=== PATIENT | male | born 1930 | race African-American/Black ===

== ENCOUNTER 2016-10-16 12:55 | Inpatient (IN) | payer MEDICARE ==
[~2016-10-16] VITALS: Ht 180.3 cm; Wt 78.6 kg
[~2016-10-16 12:55] MED LIST: ASPI-1159 PO; ATOR10TA PO; CLOP75TA16 PO; COR6 PO; DONE10TA11 PO; FURO80TA3 PO; HEPARIN SODIUM 1,000 UNIT/1ML VIAL IV ONE; LOV60 SQ; MEMA5TAB7 PO; MV,M1TAB2 PO; NICARDIPINE 100MCG/ML 10ML VIAL (CATH LAB) IV ONE; NITR12SP4 TL; NITROGLYCERIN 50MCG/ML 10ML VIAL (CATH LAB) IV ONE; POTA20TA12 PO; VIAG100 PO; VITA1CAP PO; WARF3TAB28 PO
[2016-10-16] MEDS ORDERED: COR3 PO ×2 (13:37→14:26)
[2016-10-16] MEDS ORDERED: ATOR20TA PO (13:37)
[2016-10-16 14:10] LABS: INR 1.2; PROTHROMBIN TIME 12.6 sec (9.4-11.6)
[2016-10-16] MEDS ORDERED: LIDOCAINE HCL 1% 20ML VIAL (Pyxis) INJ ONE (14:39)
[2016-10-16] MEDS ORDERED: IODIXANOL 320MG/ML 100 ML BOTTLE IV ONE (14:39)
[2016-10-16] MEDS ORDERED: FENTANYL CITRATE/PF 50MCG/ML 2ML VIAL ONE (14:42)
[2016-10-16] MEDS ORDERED: MIDAZOLAM HCL 2 MG/2 ML VIAL ONE (14:42)
[2016-10-16] MEDS ORDERED: IODIXANOL 320MG/ML 200ML BOTTLE ONE (14:45)
[2016-10-16] MEDS ORDERED: IOVERSOL 240MG/ML 100ML BOTTLE IV ONE (15:58)
[2016-10-16] MEDS ORDERED: ASPIRIN 325MG TABLET ONE (16:20)
[2016-10-16] MEDS ORDERED: CLOPIDOGREL 75MG TABLET ONE (16:21)
[2016-10-16] MEDS: CARVEDILOL 3.125 MG TABLET PO SCH (18:16)
[2016-10-16] MEDS ORDERED: ATORVASTATIN CALCIUM 20MG TABLET PO SCH (21:00)
[2016-10-17 06:44] LABS: BASOPHILS % 0.7 % (0.0-2.0); EOSINOPHILS % 1.5 % (0.0-5.0); HEMATOCRIT. 31.1 % (42.0-52.0); HEMOGLOBIN. 10.4 g/dL (14.0-18.0); MEAN CORPUSCULAR HEMOGLOBIN 30.9 pg (28.0-32.0); MEAN CORPUSCULAR VOLUME 92.4 fL (80.0-94.0); MEAN PLATELET VOLUME 8.5 fl (7.4-10.4); MONOCYTES % 9.3 % (2.0-8.0); NEUTROPHILS % 73.5 % (40.0-76.0); PLATELET 142 x1000/uL (130-400); RED BLOOD CELL COUNT 3.37 mill/uL (4.7-6.1); RED CELL DISTRIBUTION WIDTH 14.5 % (11.6-14.6)
[2016-10-17] MEDS: CARVEDILOL 3.125 MG TABLET PO SCH (08:31)
[2016-10-17] MEDS ORDERED: SILDENAFIL CITRATE 100 MG PO SCH (09:00)
[2016-10-17] MEDS ORDERED: CLOPIDOGREL 75MG TABLET PO SCH (09:00)
[2016-10-17] MEDS ORDERED: MEMANTINE HCL 5MG TABLET PO SCH (09:00)
[2016-10-17] MEDS ORDERED: FUROSEMIDE 80MG TABLET PO SCH (09:00)
[2016-10-17] MEDS ORDERED: POTASSIUM CHLORIDE 20MEQ TABLET SR PO SCH (09:00)
[2016-10-17] MEDS ORDERED: ASPIRIN 81MG EC TABLET PO SCH (09:00)
[2016-10-17] MEDS ORDERED: ENOXAPARIN 40MG/0.4ML SYR SUBCUT SCH (09:45)
[2016-10-17] MEDS ORDERED: ENOXAPARIN 60MG/0.6ML SYR SUBCUT NR (10:17)
[2016-10-17 11:45] VITALS: BP 112/68
== END 2016-10-17 11:40 | disposition home health service (06) | DRG 247 ==
LOC: CCL 12:55 → 3WST 12:56
PROVIDERS: ADMIT Specialist; ATTEND Specialist
PROC: 027034Z Dilation of Coronary Artery, One Artery with Drug-eluting Intraluminal Device, Percutaneous Approach (ICD-10-PCS; principal; 2016-10-16)
PROC: B2111ZZ Fluoroscopy of Multiple Coronary Arteries using Low Osmolar Contrast (ICD-10-PCS; 2016-10-16)
PROC: 4A033BC Measurement of Arterial Pressure, Coronary, Percutaneous Approach (ICD-10-PCS; 2016-10-16)
PROC: 4A023N7 Measurement of Cardiac Sampling and Pressure, Left Heart, Percutaneous Approach (ICD-10-PCS; 2016-10-16)
PROC: B2121ZZ Fluoroscopy of Single Coronary Artery Bypass Graft using Low Osmolar Contrast (ICD-10-PCS; 2016-10-16)
DX: T82.855A Stenosis of coronary artery stent, initial encounter (principal); I27.2 Other secondary pulmonary hypertension; I50.22 Chronic systolic (congestive) heart failure; I13.0 Hypertensive heart and chronic kidney disease with heart failure and stage 1 through stage 4 chronic kidney disease, or unspecified chronic kidney disease; I25.118 Atherosclerotic heart disease of native coronary artery with other forms of angina pectoris; G30.9 Alzheimer's disease, unspecified; F02.80 Dementia in other diseases classified elsewhere, unspecified severity, without behavioral disturbance, psychotic disturbance, mood disturbance, and anxiety; E78.5 Hyperlipidemia, unspecified; N18.3 Chronic kidney disease, stage 3 (moderate); I25.5 Ischemic cardiomyopathy; I48.0 Paroxysmal atrial fibrillation; Y83.8 Other surgical procedures as the cause of abnormal reaction of the patient, or of later complication, without mention of misadventure at the time of the procedure; Y83.1 Surgical operation with implant of artificial internal device as the cause of abnormal reaction of the patient, or of later complication, without mention of misadventure at the time of the procedure; Z79.01 Long term (current) use of anticoagulants; Z86.73 Personal history of transient ischemic attack (TIA), and cerebral infarction without residual deficits; Z88.1 Allergy status to other antibiotic agents; I25.2 Old myocardial infarction; Z88.0 Allergy status to penicillin; Y92.89 Other specified places as the place of occurrence of the external cause
CPT/HCPCS: 36415; 80048; 85025; 85347; 85610; 92928; 93005; 93458; 93571; C1725; C1769; C1887; C1893; J1644; J1650; J2250; J3010; J3490; Q9967

== ENCOUNTER 2017-10-03 18:55 | Observation (INO) | payer MEDICARE, MEDICAID ==
[~2017-10-03] VITALS: Ht 177.8 cm; Wt 72.7 kg
[~2017-10-03 18:55] MED LIST changes: +ACET-2178 PO; -ATOR10TA PO; +ATOR20TA PO; +COR3 PO; -COR6 PO; -DONE10TA11 PO; -HEPARIN SODIUM 1,000 UNIT/1ML VIAL IV ONE; +LORA1TAB PO; -LOV60 SQ; -NICARDIPINE 100MCG/ML 10ML VIAL (CATH LAB) IV ONE; -NITROGLYCERIN 50MCG/ML 10ML VIAL (CATH LAB) IV ONE
[2017-10-03] MEDS ORDERED: IPRATROPIUM BROMIDE (0.02%) 0.5MG/2.5ML NEB HHN STA (19:41)
[2017-10-03] MEDS ORDERED: METHYLPREDNISOLONE SOD SUCC 125 MG/2 ML VIAL IV STA (19:41)
[2017-10-03] MEDS ORDERED: ALBUTEROL (0.083%) 2.5MG/3ML NEB HHN STA (19:41)
[2017-10-03 20:15] LABS: BASOPHILS % 0.5 % (0.0-2.0); EOSINOPHILS % 1.5 % (0.0-5.0); HEMATOCRIT. 34.5 % (42.0-52.0); HEMOGLOBIN. 11.1 g/dL (14.0-18.0); LYMPHOCYTES % 9.3 % (20.0-50.0); MEAN CORPUSCULAR HEMOGLOBIN 30.5 pg (28.0-32.0); MEAN CORPUSCULAR VOLUME 95.3 fL (80.0-94.0); MEAN PLATELET VOLUME 8.2 fl (7.4-10.4); MONOCYTES % 10.6 % (2.0-8.0); NEUTROPHILS % 78.1 % (40.0-76.0); PLATELET 204 x1000/uL (130-400); RED BLOOD CELL COUNT 3.62 mill/uL (4.7-6.1); RED CELL DISTRIBUTION WIDTH 17.2 % (11.6-14.6)
[2017-10-03 20:18] LABS: CHLORIDE 106 mEq/L (98-107)
[2017-10-03 20:19] LABS: INR 1.3; PROTHROMBIN TIME 13.3 sec (9.4-11.6)
[2017-10-03] MEDS ORDERED: FUROSEMIDE 40MG/4ML VIAL IV ONE (20:30)
[2017-10-03] MEDS ORDERED: ASPIRIN 81MG TABLET PO ONE (20:30)
[2017-10-03 22:30] VITALS: BP 136/74
[2017-10-03] MEDS ORDERED: MIDO2.5T GT (23:32)
[2017-10-03] MEDS ORDERED: POTA20TA82 GT (23:32)
[2017-10-03] MEDS ORDERED: DOCU100T GT (23:32)
[2017-10-03] MEDS ORDERED: MAGN200T5 GT (23:32)
[2017-10-03] MEDS ORDERED: FURO40TA5 GT (23:32)
[2017-10-03] MEDS ORDERED: MULT-379 GT (23:32)
[2017-10-03] MEDS ORDERED: MEMA10TA19 GT (23:32)
[2017-10-03] MEDS ORDERED: ESCI10TA GT (23:33)
[2017-10-03] MEDS ORDERED: LORA1TAB GT (23:33)
[2017-10-03] MEDS ORDERED: GUAI-735 GT (23:33)
[2017-10-03] MEDS ORDERED: HYDR-4001 GT (23:33)
[2017-10-03] MEDS ORDERED: COR3 GT (23:33)
[2017-10-03] MEDS ORDERED: LACT10SO7 GT (23:33)
[2017-10-03] MEDS ORDERED: GUAI10SY2 GT (23:33)
[2017-10-03] MEDS ORDERED: ONDA4TAB11 GT (23:33)
[2017-10-03] MEDS ORDERED: IPRA4AER INH (23:33)
[2017-10-03] MEDS ORDERED: ATOR20TA GT (23:33)
[2017-10-04] VITALS: BP 101/60
[2017-10-04] MEDS ORDERED: ACETAMINOPHEN 650MG/20.3ML UDC GT PRN
[2017-10-04] MEDS ORDERED: IPRATROPIUM/ALBUTEROL 0.5-3(2.5)MG/3ML NEB HHN PRN
[2017-10-04] MEDS ORDERED: ONDANSETRON HCL 4MG/2ML VIAL IV PRN
[2017-10-04] MEDS ORDERED: LORAZEPAM 2MG/ML CPJ IV PRN
[2017-10-04] MEDS ORDERED: ENALAPRIL 1.25MG/ML VIAL 1ML IV PRN
[2017-10-04 04:00] VITALS: BP 124/82
[2017-10-04 08:00] VITALS: BP 111/57
[2017-10-04] MEDS: ENOXAPARIN 40MG/0.4ML SYR SUBCUT SCH (09:34)
[2017-10-04] MEDS: FUROSEMIDE 40MG/4ML VIAL IVP SCH (09:34)
[2017-10-04] MEDS: ASPIRIN 81MG TABLET GT SCH (09:34)
[2017-10-04 10:23] LABS: HEMATOCRIT. 34.7 % (42.0-52.0); HEMOGLOBIN. 11.1 g/dL (14.0-18.0); MEAN CORPUSCULAR HEMOGLOBIN 30.7 pg (28.0-32.0); MEAN CORPUSCULAR VOLUME 95.6 fL (80.0-94.0); MEAN PLATELET VOLUME 8.5 fl (7.4-10.4); PLATELET 163 x1000/uL (130-400); RED BLOOD CELL COUNT 3.63 mill/uL (4.7-6.1); RED CELL DISTRIBUTION WIDTH 17.1 % (11.6-14.6)
[2017-10-04 10:38] LABS: CHLORIDE 107 mEq/L (98-107)
[2017-10-04 12:00] VITALS: BP 93/58
[2017-10-04 14:44] LABS: PLATELET ESTIMATE NORMAL
[2017-10-04 16:00] VITALS: BP 95/54
[2017-10-04 20:00] VITALS: BP 109/60
[2017-10-05] VITALS: BP_SYST 106; BP_SYST 108; BP_DIAS 59
[2017-10-05 04:00] VITALS: BP 108/59
[2017-10-05 08:00] VITALS: BP 106/68
[2017-10-05] MEDS: ASPIRIN 81MG TABLET GT SCH (09:30)
[2017-10-05] MEDS: FUROSEMIDE 40MG/4ML VIAL IVP SCH (09:30)
[2017-10-05] MEDS: ENOXAPARIN 40MG/0.4ML SYR SUBCUT SCH (09:31)
[2017-10-05 12:00] VITALS: BP 110/52
[2017-10-05 16:00] VITALS: BP 98/58
[2017-10-05 19:43] VITALS: BP 96/59
== END 2017-10-05 20:54 ==
LOC: ER 18:55 → 5WST 20:36 → INTOOBSV 20:36 → EDBEDREQTM 20:38 → EDBEDREQ 20:38 → ENRESERV 21:29
PROVIDERS: ADMIT Hospitalist; ATTEND Hospitalist
DX: I11.0 Hypertensive heart disease with heart failure (principal); I50.23 Acute on chronic systolic (congestive) heart failure; I48.91 Unspecified atrial fibrillation; E78.00 Pure hypercholesterolemia, unspecified; F02.80 Dementia in other diseases classified elsewhere, unspecified severity, without behavioral disturbance, psychotic disturbance, mood disturbance, and anxiety; G30.9 Alzheimer's disease, unspecified; I25.10 Atherosclerotic heart disease of native coronary artery without angina pectoris; Z86.73 Personal history of transient ischemic attack (TIA), and cerebral infarction without residual deficits
CPT/HCPCS: 36415; 71045; 80053; 83880; 84484; 85025; 85610; 93005; 93970; 96372; 96374; 96375; 96376; 99291; A5054; G0378; J1650; J1940; J2930

== ENCOUNTER 2017-11-25 17:54 | Inpatient (IN) | payer MEDICARE, MEDICAID ==
[~2017-11-25] VITALS: Ht 180.3 cm; Wt 67.6 kg
[~2017-11-25 17:54] MED LIST changes: -ACET-2178 PO; -ASPI-1159 PO; +ATOR20TA GT; -ATOR20TA PO; -CLOP75TA16 PO; +COR3 GT; -COR3 PO; +DOCU100T GT; +ESCI10TA GT; +FURO40TA5 GT; -FURO80TA3 PO; +GUAI-735 GT; +HYDR-4001 GT; +IPRA4AER INH; +LACT10SO7 GT; +LORA1TAB GT; -LORA1TAB PO; +MAGN200T5 GT; +MEMA10TA19 GT; -MEMA5TAB7 PO; +MIDO2.5T GT; +MULT-379 GT; -MV,M1TAB2 PO; -NITR12SP4 TL; +ONDA4TAB11 GT; -POTA20TA12 PO; +POTA20TA82 GT; -VIAG100 PO; -VITA1CAP PO; -WARF3TAB28 PO
[2017-11-25 19:23] LABS: BASOPHILS % 0.5 % (0.0-2.0); EOSINOPHILS % 0.5 % (0.0-5.0); HEMATOCRIT. 33.5 % (42.0-52.0); HEMOGLOBIN. 10.7 g/dL (14.0-18.0); LYMPHOCYTES % 9.4 % (20.0-50.0); MEAN CORPUSCULAR HEMOGLOBIN 30.7 pg (28.0-32.0); MEAN CORPUSCULAR VOLUME 96.4 fL (80.0-94.0); MEAN PLATELET VOLUME 10.1 fl (7.4-10.4); MONOCYTES % 12.6 % (2.0-8.0); PLATELET 116 x1000/uL (130-400); RED BLOOD CELL COUNT 3.47 mill/uL (4.7-6.1); RED CELL DISTRIBUTION WIDTH 20.1 % (11.6-14.6)
[2017-11-25 19:28] LABS: CHLORIDE 100 mEq/L (98-107)
[2017-11-25 19:29] LABS: INR 1.3; PROTHROMBIN TIME 12.9 sec (9.1-11.1)
[2017-11-25 21:19] LABS: CLARITY URINE TURBID (CLEAR); COLOR URINE DARK YELLOW (YELLOW); KETONES URINE NEGATIVE (NEGATIVE); LEUKOCYTE ESTERASE URINE 3+ (NEGATIVE); NITRITE URINE NEGATIVE (NEGATIVE); OCCULT BLOOD URINE 2+ (NEGATIVE); PROTEIN URINE 2+ (NEGATIVE); SPECIFIC GRAVITY URINE 1.017 (1.005-1.030)
[2017-11-25] MEDS ORDERED: GUAIFENESIN 200MG/10ML SUGAR FREE UDC PO PRN (22:45)
[2017-11-25] MEDS ORDERED: HYDROCODONE/ACETAMINOPHEN 5/325MG TABLET PO PRN (22:45)
[2017-11-25] MEDS ORDERED: HYDROMORPHONE HCL/PF 2MG/ML CPJ IV PRN (22:45)
[2017-11-25] MEDS ORDERED: ONDANSETRON HCL 4MG/2ML INJ IV PRN (22:45)
[2017-11-25] MEDS ORDERED: ACETAMINOPHEN 650MG/20.3ML UDC GT PRN (22:45)
[2017-11-26] MEDS ORDERED: LEVOFLOXACIN 500MG PREMIX 100 ML IV NR ×2 (01:45→06:00)
[2017-11-26] MEDS: DEXT 5%/0.45% NACL 1000ML 1,000 ML IV SCH ×3 (01:50→08:52)
[2017-11-26 02:40] VITALS: BP 94/57
[2017-11-26 07:32] LABS: BASOPHILS % 0.3 % (0.0-2.0); EOSINOPHILS % 0.9 % (0.0-5.0); HEMATOCRIT. 31.7 % (42.0-52.0); HEMOGLOBIN. 10.4 g/dL (14.0-18.0); LYMPHOCYTES % 11.4 % (20.0-50.0); MEAN CORPUSCULAR HEMOGLOBIN 31.5 pg (28.0-32.0); MEAN PLATELET VOLUME 9.7 fl (7.4-10.4); MONOCYTES % 10.2 % (2.0-8.0); NEUTROPHILS % 77.2 % (40.0-76.0); PLATELET 113 x1000/uL (130-400)
[2017-11-26 08:01] LABS: CHLORIDE 101 mEq/L (98-107)
[2017-11-26 08:20] VITALS: BP 101/50
[2017-11-26] MEDS: FUROSEMIDE 40MG/4ML VIAL IV SCH (08:52)
[2017-11-26] MEDS ORDERED: ENOXAPARIN 40MG/0.4ML SYR SUBCUT SCH (09:00)
[2017-11-26] MEDS ORDERED: MEMANTINE HCL 5MG TABLET PO SCH (11:15)
[2017-11-26] MEDS: MIDODRINE HCL 2.5MG TABLET PO SCH ×2 (12:19→18:43)
[2017-11-26 12:36] VITALS: BP 99/60
[2017-11-26] MEDS ORDERED: IPRATROPIUM/ALBUTEROL 0.5-3(2.5)MG/3ML NEB HHN PRN (13:45)
[2017-11-26 16:42] VITALS: BP 99/48
[2017-11-26] MEDS: IPRATROPIUM/ALBUTEROL 0.5-3(2.5)MG/3ML NEB HHN SCH (20:16)
[2017-11-26 20:30] VITALS: BP 92/54
[2017-11-26] MEDS: ATORVASTATIN CALCIUM 20MG TABLET PO SCH (21:07)
[2017-11-27 00:44] VITALS: BP 102/56
[2017-11-27] MEDS: LORAZEPAM 2MG/ML CPJ IV PRN (01:49)
[2017-11-27] MEDS: IPRATROPIUM/ALBUTEROL 0.5-3(2.5)MG/3ML NEB HHN SCH ×4 (02:08→20:30)
[2017-11-27 04:00] VITALS: BP 102/67
[2017-11-27] MEDS ORDERED: LEVOFLOXACIN 250MG PREMIX 50 ML IV SCH (06:00)
[2017-11-27 07:15] LABS: BG BASE EXCESS 5.5 mmol/L (-2.0-2.0); BG CARBOXYHEMOGLOBIN 0.9 % (0.5-1.5); BG DEOXYHEMOGLOBIN 2.9 % (0.0-5.0); BG HCO3 ACT 30.1 mmol/L (22.0-26.0); BG METHEMOGLOBIN 0.1 % (0.0-1.5); BG OXYGEN SATURATION 97.1 % (92.0-98.5); BG OXYHEMOGLOBIN 96.1 % (94.0-97.0); BG PCO2 44.2 mmHg (35.0-45.0); BG PH 7.451 (7.350-7.450); BG PO2 92.2 mmHg (75.0-100.0); BG SAMPLE SITE RIGHT RADIAL; BG TOTAL HEMOGLOBIN 10.9 g/dL (12.0-18.0); BG VENT MODE NASAL CANNULA
[2017-11-27 07:59] VITALS: BP 87/58
[2017-11-27] MEDS: FUROSEMIDE 40MG/4ML VIAL IV SCH (09:41)
[2017-11-27] MEDS: MEMANTINE HCL 10MG TABLET PO SCH (09:41)
[2017-11-27] MEDS: ENOXAPARIN 30MG/0.3ML SYR SUBCUT SCH (09:45)
[2017-11-27] MEDS: MIDODRINE HCL 2.5MG TABLET PO SCH (09:46)
[2017-11-27 10:17] LABS: HEMATOCRIT. 32.4 % (42.0-52.0); HEMOGLOBIN. 10.4 g/dL (14.0-18.0); MEAN CORPUSCULAR HEMOGLOBIN 31.1 pg (28.0-32.0); MEAN CORPUSCULAR VOLUME 97.1 fL (80.0-94.0); MEAN PLATELET VOLUME 8.8 fl (7.4-10.4); PLATELET 101 x1000/uL (130-400); RED BLOOD CELL COUNT 3.34 mill/uL (4.7-6.1); RED CELL DISTRIBUTION WIDTH 19.3 % (11.6-14.6)
[2017-11-27 10:19] LABS: INR 1.3; PROTHROMBIN TIME 12.9 sec (9.1-11.1)
[2017-11-27 10:52] LABS: CHLORIDE 101 mEq/L (98-107)
[2017-11-27 11:04] LABS: PLATELET ESTIMATE DECREASED
[2017-11-27 11:58] VITALS: BP 117/59
[2017-11-27] MEDS: MIDODRINE HCL 5MG TABLET PO SCH ×2 (14:03→17:06)
[2017-11-27 16:06] VITALS: BP 119/75
[2017-11-27 20:00] VITALS: BP 107/55
[2017-11-27] MEDS: ATORVASTATIN CALCIUM 20MG TABLET PO SCH (21:20)
[2017-11-28] VITALS: BP 110/50
[2017-11-28] MEDS: IPRATROPIUM/ALBUTEROL 0.5-3(2.5)MG/3ML NEB HHN SCH ×3 (00:57→13:13)
[2017-11-28 04:00] VITALS: BP 101/51
[2017-11-28] MEDS ORDERED: LEVOFLOXACIN 250MG TABLET PO SCH (06:00)
[2017-11-28 08:00] VITALS: BP 116/62
[2017-11-28] MEDS: FUROSEMIDE 40MG/4ML VIAL IV SCH (08:13)
[2017-11-28] MEDS: MEMANTINE HCL 10MG TABLET PO SCH (08:14)
[2017-11-28] MEDS: LORAZEPAM 2MG/ML CPJ IV PRN (08:14)
[2017-11-28] MEDS: MIDODRINE HCL 5MG TABLET PO SCH ×2 (08:14→14:25)
[2017-11-28] MEDS: ENOXAPARIN 30MG/0.3ML SYR SUBCUT SCH (08:14)
[2017-11-28 10:28] VITALS: BP 112/61
[2017-11-28 12:00] VITALS: BP 110/61
== END 2017-11-28 15:30 | DRG 871 ==
LOC: ER 18:09 → 6WST 21:12 → EDBEDREQTM 21:19 → EDBEDREQ 21:19 → ENRESERV 11-26 01:44
PROVIDERS: ADMIT Hospitalist; ATTEND Hospitalist
DX: A41.9 Sepsis, unspecified organism (principal); J96.00 Acute respiratory failure, unspecified whether with hypoxia or hypercapnia; E43 Unspecified severe protein-calorie malnutrition; I50.23 Acute on chronic systolic (congestive) heart failure; N39.0 Urinary tract infection, site not specified; N17.9 Acute kidney failure, unspecified; R18.8 Other ascites; I13.0 Hypertensive heart and chronic kidney disease with heart failure and stage 1 through stage 4 chronic kidney disease, or unspecified chronic kidney disease; I47.2 Ventricular tachycardia; K74.60 Unspecified cirrhosis of liver; R13.10 Dysphagia, unspecified; D69.6 Thrombocytopenia, unspecified; L89.150 Pressure ulcer of sacral region, unstageable; E87.5 Hyperkalemia; F02.80 Dementia in other diseases classified elsewhere, unspecified severity, without behavioral disturbance, psychotic disturbance, mood disturbance, and anxiety; G30.9 Alzheimer's disease, unspecified; E78.5 Hyperlipidemia, unspecified; I48.2 Chronic atrial fibrillation; I25.5 Ischemic cardiomyopathy; I25.10 Atherosclerotic heart disease of native coronary artery without angina pectoris; N18.9 Chronic kidney disease, unspecified; Z86.73 Personal history of transient ischemic attack (TIA), and cerebral infarction without residual deficits; Z95.5 Presence of coronary angioplasty implant and graft; Z87.440 Personal history of urinary (tract) infections; Z74.01 Bed confinement status; Z95.1 Presence of aortocoronary bypass graft; Z95.0 Presence of cardiac pacemaker; Z93.1 Gastrostomy status; Z95.2 Presence of prosthetic heart valve; Z68.20 Body mass index [BMI] 20.0-20.9, adult; I25.2 Old myocardial infarction; Z88.0 Allergy status to penicillin; Z88.1 Allergy status to other antibiotic agents
CPT/HCPCS: 36415; 36600; 71045; 74176; 80053; 81003; 82375; 82805; 83735; 85025; 85610; 87077; 87086; 87186; 93005; 93306; 93970; 93971; 94640; 96365; 96372; 99285; J1650; J1940; J1956; J2060; J7620